=== PATIENT | male | born 2000 | race Caucasian/White ===

== ENCOUNTER 2022-07-29 00:38 | Emergency (ER) | payer OTHER ==
[~2022-07-29] VITALS: Ht 208.3 cm; Wt 73.5 kg
[2022-07-29] MEDS ORDERED: LORazepam 2 MG/ML VIAL IV STA ×2 (01:18→01:22)
[2022-07-29] MEDS ORDERED: diphenhydrAMINE 50MG/ML VIAL (J1200) IM STA (01:46)
[2022-07-29] MEDS ORDERED: HALOPERIDOL 5MG/ML VIAL (J1630 PER 1) IM STA (01:46)
[2022-07-29] MEDS ORDERED: HALOPERIDOL 5MG/ML VIAL (J1630 PER 1) As Ordered ONE (01:47)
[2022-07-29] MEDS ORDERED: diphenhydrAMINE 50MG/ML VIAL (J1200) As Ordered ONE (01:47)
[2022-07-29 11:05] VITALS: BP 131/79
== END 2022-07-29 11:18 | disposition home or self-care (01) ==
LOC: M ED 00:38 → EDBD 00:38 → M ED 11:18
DX: S02.2XXA Fracture of nasal bones, initial encounter for closed fracture (principal); Y04.0XXA Assault by unarmed brawl or fight, initial encounter; F10.129 Alcohol abuse with intoxication, unspecified
CPT/HCPCS: 70450; 70486; 72125; 96372; 96374; 96375; 99285; J1200; J1630; J2060

== ENCOUNTER 2023-03-01 14:34 | Emergency (ER) | payer OTHER ==
[~2023-03-01] VITALS: Ht 182.9 cm; Wt 77.1 kg
[2023-03-01 14:35] VITALS: BP 113/69
[2023-03-01] MEDS ORDERED: ACET1TAB55 PO (15:02)
[2023-03-01] MEDS ORDERED: IBUP-1022 PO (15:02)
[2023-03-01] MEDS ORDERED: METOCLOPRAMIDE INJ 10MG/2ML VIAL IV ONE (17:05)
[2023-03-01] MEDS ORDERED: KETOROLAC 30 MG/ML 1ML VIAL IV ONE (17:05)
[2023-03-01] MEDS ORDERED: NS 1,000 ML IV ONE (17:05)
[2023-03-01 17:39] LABS: BASO % 0.4 % (0.0-1.0); EOS # 0.1 10^3/uL (0.0-0.5); EOS % 1.4 % (0.0-3.0); HEMATOCRIT 40.3 % (42.0-52.0); HEMOGLOBIN 13.6 g/dl (13.5-17.5); LYMPH # 2.4 10^3/uL (1.5-5.0); LYMPH % 30.2 % (24.0-44.0); MEAN CORPUSCULAR HEMOGLOBIN 30.1 pg (27.0-33.0); MEAN CORPUSCULAR HGB CONC 33.7 g/dl (32.0-36.5); MEAN CORPUSCULAR VOLUME 89.2 fl (80.0-96.0); MONO # 0.4 10^3/uL (0.0-0.8); MONO % 5.3 % (2.0-8.0); NEUTROPHILS % 62.5 % (36.0-66.0); PLATELET COUNT, AUTOMATED 218 10^3/uL (150-450); RED BLOOD COUNT 4.52 10^6/uL (4.30-6.10)
[2023-03-01 17:53] LABS: ERYTHROCYTE SEDIMENTATION RATE 4 mm/hr (0-15)
[2023-03-01 18:06] LABS: MAGNESIUM LEVEL 2.1 MG/DL (1.8-2.4)
[2023-03-01 18:07] LABS: C REACTIVE PROTEIN QUANTITATIV < 0.40 MG/DL (<1.0)
[2023-03-01 18:10] LABS: THYROID STIMULATING HORMONE 0.331 uIU/ML (0.48-4.17)
[2023-03-01 18:11] LABS: FREE T4 1.26 NG/DL (0.83-1.43)
[2023-03-01] MEDS ORDERED: SUMA50TA2 PO (18:54)
== END 2023-03-01 19:07 | disposition home or self-care (01) ==
LOC: M ED 14:34
DX: R51.9 Headache, unspecified (principal); F17.200 Nicotine dependence, unspecified, uncomplicated
CPT/HCPCS: 70450; 72125; 80047; 83605; 83735; 84439; 84443; 85025; 85652; 86140; 96374; 96375; 99283; J1885; J2765

== ENCOUNTER 2023-11-19 17:15 | Emergency (ER) | payer OTHER ==
[~2023-11-19] VITALS: Ht 180.3 cm; Wt 81.2 kg
[~2023-11-19 17:15] MED LIST: ACET1TAB55 PO; IBUP-1022 PO; SUMA50TA2 PO
[2023-11-19] MEDS: ACETAMINOPHEN 325 MG TAB PO ONE (20:52)
[2023-11-19] MEDS: BENZONATATE 100MG CAPSULE PO ONE (20:52)
[2023-11-19] MEDS: ALBUTEROL 90 MCG/ACT 8GM HFA INHALER INH ONE (21:10)
[2023-11-19] MEDS ORDERED: BENZ200C70 PO (21:15)
[2023-11-19] MEDS ORDERED: VENTAER INH (21:15)
[2023-11-19 21:27] VITALS: BP 134/67; TEMP 97.4; O2SAT 97
== END 2023-11-19 21:41 | disposition home or self-care (01) ==
LOC: M ED 17:15
DX: J06.9 Acute upper respiratory infection, unspecified (principal); Z79.52 Long term (current) use of systemic steroids; Z79.1 Long term (current) use of non-steroidal anti-inflammatories (NSAID)

== ENCOUNTER 2025-08-31 09:29 | Emergency (ER) | payer OTHER ==
[~2025-08-31 09:29] MED LIST changes: +BENZ200C70 PO; -IBUP-1022 PO; +IBUP600T42 PO; +VENTAER INH
[2025-08-31] MEDS: IBUPROFEN 600 MG TAB PO ONE (10:45)
[2025-08-31 10:55] VITALS: BP 120/63; TEMP 97.6; O2SAT 96
== END 2025-08-31 10:58 | disposition home or self-care (01) ==
LOC: M ED 09:29
DX: R05.9 Cough, unspecified (principal); B34.1 Enterovirus infection, unspecified; Z79.51 Long term (current) use of inhaled steroids; Z79.1 Long term (current) use of non-steroidal anti-inflammatories (NSAID); Z79.899 Other long term (current) drug therapy